=== PATIENT | male | born 1980 | race African-American/Black ===

== ENCOUNTER 2021-12-03 19:38 | Emergency (ER) | payer BC ==
[~2021-12-03] VITALS: Ht 185.4 cm; Wt 108.9 kg
[2021-12-03 20:17] VITALS: BP 137/83
[2021-12-03] MEDS ORDERED: 0.9%NACL 1000ML 1,000 ML IV ONE (20:30)
[2021-12-03] MEDS ORDERED: MORPHINE 4 MG SYG IVP ONE (20:30)
[2021-12-03] MEDS ORDERED: ONDANSETRON 4MG INJ IVP ONE (20:30)
[2021-12-03] MEDS ORDERED: TRAM50TA2 PO (21:40)
[2021-12-03] MEDS ORDERED: NAPR500T6 PO (21:40)
== END 2021-12-03 22:01 | disposition home or self-care (01) ==
LOC: EDH 19:38
DX: S30.810A Abrasion of lower back and pelvis, initial encounter (principal); W18.09XA Striking against other object with subsequent fall, initial encounter; Y93.89 Activity, other specified; Y92.89 Other specified places as the place of occurrence of the external cause; Y99.8 Other external cause status
CPT/HCPCS: 74176; 96374; 96375; 99284; J2270; J2405; J7030